=== PATIENT | female | born 1945 | race Caucasian/White ===

== ENCOUNTER → 2016-12-03 | Outpatient (CLI) | payer OTHER ==
[~2016-12-03] MED LIST: ARTANE2 M1 PO; BACLOFEN10 MG PO; CITALOPRAM HBR40 MG PO; CORGARD20 MG PO; DESYREL50 MG PO; DITROPAN PO; DULOXETINE HCL60 MG PO; FLONASE 0.05% N16 G1; GENERLAC; HYDROCHLOROTHIA25 MG PO; LANTUS SOLOSTAR3 ML SUBQ; LYRICA100 MG PO; METOCLOPRAMIDE PO; OXYCODONE HCL5 MG PO; PRILOSEC40 MG PO; PROTONIX PO; SENNA LAXATIVE8.6 M1; SENNA-LAX8.6 M1 PO; TRAMADOL HCL50 M1 PO; TRAZODONE HCL100 MG PO; VITAMIN D50000 UNIT PO; VOLTAREN100 GM TP; ZESTRIL10 M2 PO; ZESTRIL40 MG PO; ZONEGRAN100 M1 PO
--- NOTE | ~2016-12-03 | XA170 ---
[facility] A Service of [facility] RADIOLOGY TEXT RESULTS PATIENT: CIRO HENSON LOCATION: CIVR : 43 UNIT #: [id number] AGE: [address]: CHRIS VEGA MD SEX: F ORDER DR: [id number] [address] [id number] O MR#: [id number] Acc #: [id number] NAME: CIRO HENSON : 1945 SEX: F STUDY DATE/TIME: 12/03/2016 11:26 UNIT: CIVR ROOM: STUDY DESCRIPTION: XA Paracentesis W Image Attending Physician: Chris Vega M.D. Referring Physician: Chris Vega M.D. Ordering Physician: Physician Non-Staff Primary Care Physician: Chris Vega M.D. MEDICAL IMAGING REPORT This report is preliminary unless electronic signature is present EXAM Ultrasound-guided paracentesis INDICATION Cirrhosis and ascites. PROCEDURE The risks, benefits, and alternatives to the procedure were explained to the patient, and signed, informed consent was obtained. Patient was placed supine on the stretcher and preliminary ultrasound of the abdomen was performed which demonstrated a moderate volume of ascites. This image was permanently saved. Overlying skin was marked. Patient was prepped and draped in the usual sterile fashion. Time-out was performed as per protocol. Skin and subcutaneous tissues were anesthetized with buffered lidocaine. Quant the [place] catheter was advanced into the fluid with aspiration of serous material. Catheter was hooked to suction tubing. There was evacuation of a total of 5.7 L of serous material. Catheter was then removed and manual pressure was applied until hemostasis was obtained. Patient tolerated the procedure well and there were no immediate complications. IMPRESSION Technically successful ultrasound-guided paracentesis with evacuation of 5.7 L of serious material. Ultrasound was used during the procedure and permanent images were saved. Dictated by... Federica Shetty M.D. [facility] A Service [facility] RADIOLOGY TEXT RESULTS PATIENT: CRIO HENSON [facility] UNIT #: [id number] AGE: [address]: CHRIS VEGA MD SEX: F ORDER DR: THIS IS AN ELECTRONICALLY VERIFIED REPORT Federica Shtety M.D. at 12/04/2016 5:13 PM BHAVANA/maura TD: 12/04/2016 09:38 JOB #: [id number] MEDICAL IMAGING REPORT Page 1 of 1 COPY
[2016-12-03 11:18] LABS: HEMATOCRIT 32.9 % (35.0-45.0); HEMOGLOBIN 11.2 gm/dL (12.0-16.0); MEAN CELL VOLUME 96.3 FL (83-96); MEAN CORPUSCULAR HGB CONC 34.2 g/dL (30-36); MEAN PLATELET VOLUME 7.3 FL (6.5-11.5); RED BLOOD COUNT 3.41 X10e (3.90-5.30); RED CELL DISTRIBUTION WIDTH 14.4 % (11.0-15.5); WHITE BLOOD COUNT 4.1 X10e3 (4.0-10.5)
[2016-12-03 11:49] LABS: INR 1.2; PARTIAL THROMBOPLASTIN TIME 27.5 SECONDS (23.5-31.3); PROTHROMBIN TIME (PATIENT) 13.4 SECONDS (10.0-11.7)
[2016-12-03 14:10] LABS: BODY FLUID SOURCE PERITONEAL
[2016-12-03 14:11] LABS: BF TOTAL NUCLEATED CELL COUNT 553 CMM (0-100); BODY FLUID APPEARANCE CLOUDY; BODY FLUID RBC <10000 CMM
[2016-12-03 14:12] LABS: AMYLASE, BODY FLUID 14 IU/L
== END | disposition home or self-care (01) ==
LOC: CIVR 09:00
PROVIDERS: Family Medicine
PROC: 0W9G3ZX Drainage of Peritoneal Cavity, Percutaneous Approach, Diagnostic (ICD-10-PCS; principal; 2016-12-03)
DX: K74.60 Unspecified cirrhosis of liver (principal); R18.8 Other ascites; Z88.8 Allergy status to other drugs, medicaments and biological substances; Z88.6 Allergy status to analgesic agent
CPT/HCPCS: 36415; 82042; 82150; 82247; 82945; 83615; 84157; 85027; 85610; 85730; 87070; 87205; 88108; 88305; 89051